=== PATIENT | female | born 1990 | race Caucasian/White ===

== ENCOUNTER 2016-12-26 14:28 | Emergency (ER) | payer OTHER ==
[~2016-12-26] VITALS: Ht 182.9 cm; Wt 64.0 kg
[2016-12-26] MEDS ORDERED: NS 1,000 ML IV SCH (14:55)
[2016-12-26] MEDS ORDERED: GI COCKTAIL 50ML BTL(HYOSCYAMINE/MAALOX/LIDOCAINE VISCOUS)(1:3:1) PO ONE (15:00)
[2016-12-26] MEDS ORDERED: PANTOPRAZOLE 40MG INJ (PROTONIX) (C9113) IV ONE (15:00)
[2016-12-26] MEDS ORDERED: ONDANSETRON 4MG/2ML VIAL (J2405) IV ONE (15:00)
[2016-12-26 15:25] LABS: BASO % 0.2 % (0.0-1.0); EOS # 0.1 K/mm3 (0.0-0.50); EOS % 0.7 % (0.0-3.0); LARGE UNSTAINED CELL # 0.1 K/mm3 (0.0-0.4); LARGE UNSTAINED CELL % 0.7 % (0.0-4.0); LYMPH # 1.3 K/mm3 (1.5-6.5); LYMPH % 12.8 % (24.0-44.0); MEAN CORPUSCULAR HEMOGLOBIN 30.4 pg (27.0-33.0); MEAN CORPUSCULAR HGB CONC 33.9 g/dl (32.0-36.5); MEAN CORPUSCULAR VOLUME 89.7 fl (80.0-96.0); MONO # 0.5 K/mm3 (0.0-0.8); MONO % 4.9 % (0.0-5.0); NEUTROPHILS # 7.8 K/mm3 (1.8-7.7); NEUTROPHILS % 80.8 % (36.0-66.0); PLATELET COUNT, AUTOMATED 203 k/mm3 (150-450); RED CELL DISTRIBUTION WIDTH 12.7 % (11.5-14.5); WHITE BLOOD COUNT 9.6 K/mm3 (4.0-10.0)
[2016-12-26 15:45] LABS: ALBUMIN 4.4 GM/DL (3.2-5.2); ALBUMIN/GLOBULIN RATIO 1.29 (1.00-1.93); ALKALINE PHOSPHATASE 64 U/L (45-117); ALT/SGPT 14 U/L (12-78); AMYLASE 28 U/L (25-115); ANION GAP 9 MEQ/L (8-16); AST/SGOT 10 U/L (15-37); BILIRUBIN,DIRECT 0.1 MG/DL (0.0-0.2); BILIRUBIN,TOTAL 0.6 MG/DL (0.2-1.0); BLOOD UREA NITROGEN 21 MG/DL (7-18); CALCIUM LEVEL 9.5 MG/DL (8.5-10.1); CARBON DIOXIDE LEVEL 23 MEQ/L (21-32); CHLORIDE LEVEL 106 MEQ/L (98-107); CREATININE FOR GFR 0.67 MG/DL (0.55-1.02); GLOMERULAR FILTRATION RATE > 60.0 (>60); GLUCOSE, FASTING 99 MG/DL (70-105); POTASSIUM SERUM 3.9 MEQ/L (3.5-5.1); SODIUM LEVEL 138 MEQ/L (136-145); TOTAL PROTEIN 7.8 GM/DL (6.4-8.2)
[2016-12-26] MEDS ORDERED: KETOROLAC 30 MG/ML VIAL (J1885) IV ONE (16:00)
--- NOTE | 2016-12-26 16:32 | REP ---
Clinical: Acute abdominal epigastric pain. Technique: Butcher scale ultrasound using curved array transducer. Findings: The liver and pancreas are normal in contour, size, and echogenicity without focal hepatic or pancreatic lesions identified. The gallbladder is normal without gallstones, wall thickening or pericholecystic fluid. No biliary ductal dilatation is appreciated, and the common bile duct measures 2.0 mm diameter. The right kidney is normal in reniform shape without hydronephrosis and measures 9.9 x 4.4 x 5.6 cm. No ascites. Visualized portions of the abdominal aorta normal. Impression: Normal right upper quadrant and gallbladder abdominal ultrasound. Signed by Lion Laureano MD 12/26/2016 04:23 P
[2016-12-26] MEDS ORDERED: PROT1TAB2 PO (16:39)
[2016-12-26] MEDS ORDERED: ZOFR4TAB3 PO (16:39)
[2016-12-26] MEDS ORDERED: NORCOTAB PO (16:39)
[2016-12-26 17:09] VITALS: BP 160/57
[2017-03-24] MEDS ORDERED: ABIL20TA5 PO (10:14)
[2017-03-24] MEDS ORDERED: ZOLO100T PO (10:14)
== END 2016-12-26 17:12 | disposition home or self-care (01) ==
LOC: M ED 14:28
DX: K29.50 Unspecified chronic gastritis without bleeding (principal); K21.9 Gastro-esophageal reflux disease without esophagitis; F43.10 Post-traumatic stress disorder, unspecified; Z79.899 Other long term (current) drug therapy; Z88.1 Allergy status to other antibiotic agents
CPT/HCPCS: 36415; 76705; 80048; 80076; 82150; 82550; 82553; 83690; 85025; 96361; 96374; 96375; 99283; C9113; J1885; J2405

== ENCOUNTER → 2016-12-26 | Outpatient (CLI) | payer OTHER ==
[~2016-12-26] MED LIST: ABIL20TA5 PO; NORCOTAB PO; PROT1TAB2 PO; ZOFR4TAB3 PO; ZOLO100T PO
--- NOTE | 2016-12-26 13:43 | REP ---
Clinical: Epigastric pain . Comparison: None . Technique: PA and lateral. Findings: The mediastinum and cardiac silhouette are normal. The lung way are clear and without acute consolidation, effusion, or pneumothorax. The skeletal structures are intact and normal. Impression: 1. No acute cardiopulmonary process. Signed by Lion Laureano MD 12/26/2016 01:34 P
== END ==
LOC: M LRY 13:18
PROVIDERS: ATTEND Physician Assistant
DX: R10.13 Epigastric pain (principal)

== ENCOUNTER 2017-03-31 11:32 | Day surgery (SDC) | payer OTHER ==
[~2017-03-31] VITALS: Ht 182.9 cm; Wt 64.9 kg
[2017-03-31] MEDS ORDERED: LR 1,000 ML IV ONE (11:45)
[2017-03-31 11:57] LABS: MEAN CORPUSCULAR HEMOGLOBIN 30.3 pg (27.0-33.0); MEAN CORPUSCULAR HGB CONC 33.6 g/dl (32.0-36.5); MEAN CORPUSCULAR VOLUME 90.1 fl (80.0-96.0); RED CELL DISTRIBUTION WIDTH 12.6 % (11.5-14.5); WHITE BLOOD COUNT 7.4 10^3/uL (4.0-10.0)
[2017-03-31 12:17] LABS: CONTROL LINE HCG INT CTR LINE PRESENT
[2017-03-31] MEDS ORDERED: MIDAZOLAM INJ 2 MG/2 ML VIAL (J2250) As Ordered ONE (13:07)
[2017-03-31] MEDS ORDERED: fentaNYL 250 MCG/5 ML INJECTION (J3010) As Ordered ONE (13:07)
[2017-03-31] MEDS ORDERED: LIDOCAINE 2% INJ 100 MG/5 ML SDV (FOR ANES.) As Ordered ONE (13:08)
[2017-03-31] MEDS ORDERED: NEOSTIGMINE 10 MG/10 ML VIAL (J2710) As Ordered ONE (13:08)
[2017-03-31] MEDS ORDERED: METOCLOPRAMIDE INJ 10MG/2ML VIAL (J2765) As Ordered ONE (13:08)
[2017-03-31] MEDS ORDERED: ONDANSETRON 4MG/2ML VIAL (J2405) As Ordered ONE (13:08)
[2017-03-31] MEDS ORDERED: PROPOFOL 200 MG/20 ML VIAL As Ordered ONE (13:08)
[2017-03-31] MEDS ORDERED: KETOROLAC 60 MG/2 ML VIAL (J1885) As Ordered ONE (13:08)
[2017-03-31] MEDS ORDERED: GLYCOPYRROLATE INJ 0.2 MG/ML 2 ML VIAL As Ordered ONE (13:08)
[2017-03-31] MEDS ORDERED: ROCURONIUM BROMIDE 50 MG/5 ML VIAL/SYRINGE As Ordered ONE (13:08)
[2017-03-31] MEDS ORDERED: METHYLENE BLUE 0.5% (5MG/ML) 10 ML AMP (PROVAYBLUE)(Q9968 PER 1MG) As Ordered ONE (13:47)
[2017-03-31] MEDS ORDERED: BUPIVACAINE HCL 0.5% 30 ML VIAL As Ordered ONE (13:47)
[2017-03-31] MEDS ORDERED: fentaNYL 100 MCG/2 ML INJECTION (J3010) As Ordered ONE (15:03)
[2017-03-31] MEDS ORDERED: PERCOCET 5MG/325MG TAB As Ordered ONE (15:03)
[2017-03-31] MEDS: fentaNYL 100 MCG/2 ML INJECTION (J3010) IV PRN ×3 (15:05→15:44)
[2017-03-31] MEDS ORDERED: ONDANSETRON 4MG/2ML VIAL (J2405) IV PRN (15:15)
[2017-03-31] MEDS ORDERED: PERCOCET 5MG/325MG TAB PO PRN (15:15)
[2017-03-31] MEDS ORDERED: METOCLOPRAMIDE INJ 10MG/2ML VIAL (J2765) IV PRN (15:15)
[2017-03-31] MEDS ORDERED: MEPERIDINE INJ 25 MG/ML VIAL (J2175) IV PRN (15:15)
[2017-03-31] MEDS ORDERED: LR 1,000 ML IV SCH ×2 (15:15)
[2017-03-31 17:25] VITALS: BP 114/59
== END 2017-03-31 17:26 | disposition home or self-care (01) ==
LOC: M SDC 11:32
PROVIDERS: ATTEND Obstetrics & Gynecology
DX: N97.9 Female infertility, unspecified (principal); R10.2 Pelvic and perineal pain; F41.9 Anxiety disorder, unspecified; F32.9 Major depressive disorder, single episode, unspecified; Z88.1 Allergy status to other antibiotic agents; E03.9 Hypothyroidism, unspecified; F17.210 Nicotine dependence, cigarettes, uncomplicated; Z85.850 Personal history of malignant neoplasm of thyroid
CPT/HCPCS: 36415; 49320; 58350; 84703; 85027; 86850; 86900; 86901; J1885; J2250; J2405; J2710; J2765; J3010; Q9968

== ENCOUNTER 2018-07-01 19:37 | Emergency (ER) | payer OTHER ==
[~2018-07-01] VITALS: Ht 182.9 cm; Wt 65.9 kg
[~2018-07-01 19:37] MED LIST changes: +ZOFR4TAB14 PO; -ZOFR4TAB3 PO
[2018-07-01] MEDS ORDERED: NORCO, ANEXSIA 5/325MG TABLET (HYDROcodone/ACETAMINOPHEN) PO ONE (21:15)
[2018-07-01 21:23] VITALS: BP 128/62
[2018-07-01] MEDS ORDERED: ADACEL/BOOSTRIX VACCINE (DIPHTH/PERTUSS/ACELL/TETANUS)0.5ML SYR (90715) IM ONE (21:30)
== END 2018-07-01 21:46 | disposition home or self-care (01) ==
LOC: M ED 19:37
DX: S01.01XA Laceration without foreign body of scalp, initial encounter (principal); W21.220A Struck by ice hockey puck, initial encounter; Y92.330 Ice skating rink (indoor) (outdoor) as the place of occurrence of the external cause; Y93.22 Activity, ice hockey; F33.9 Major depressive disorder, recurrent, unspecified; F41.9 Anxiety disorder, unspecified; F43.10 Post-traumatic stress disorder, unspecified; Z88.1 Allergy status to other antibiotic agents

== ENCOUNTER 2018-07-06 17:34 | Emergency (ER) | payer OTHER ==
[~2018-07-06] VITALS: Ht 182.9 cm; Wt 65.9 kg
[2018-07-06 17:34] VITALS: BP 134/65
[2018-07-06] MEDS ORDERED: TRINTAB11 PO (17:38)
== END 2018-07-06 18:06 | disposition home or self-care (01) ==
LOC: M ED 17:34
DX: Z48.02 Encounter for removal of sutures (principal); Z88.1 Allergy status to other antibiotic agents; Z79.3 Long term (current) use of hormonal contraceptives